=== PATIENT | female | born 1960 | race Caucasian/White ===

== ENCOUNTER 2017-01-18 09:34 | Day surgery (SDC) ==
[2014-03-20 11:36] VITALS: BMI 36.6
[2017-01-18] MEDS ORDERED: LIDOCAINE 1% 20 ML MDV ONE (10:17)
[2017-01-18] MEDS ORDERED: LIDOCAINE 1% 20 ML MDV ID ONE (10:17)
[2017-01-18] MEDS ORDERED: VERSED ONE (10:53)
[2017-01-18] MEDS ORDERED: LIDOCAINE HCL 2% LUER-JET ONE (10:53)
[2017-01-18] MEDS ORDERED: DIPRIVAN 20 ML VIAL IVP ONE (10:53)
[2017-01-18 12:20] VITALS: BP 125/78; TEMP 97.4
--- NOTE | 2017-01-18 14:40 | OP ---
PROCEDURE: EGD (ESOPHAGOGASTRODUODENOSCOPY). ENDOSCOPIST: Christy NAVA M.D. INDICATION: NAUSEA AND VOMITING. INSTRUMENT: GIFH-190. MEDICATION: PER ANESTHESIA. PROCEDURE: The patient was positioned for endoscopy. The oropharynx was sprayed with Cetacaine spray and the endoscope was advanced through the bite block into the esophagus and from there advanced to the duodenum. The duodenum was normal. The pylorus was patent. The antrum was normal. Hiatus hernia was seen on retroflex exam. The patient has esophagitis noted at the GE junction, Grade B. The esophagus was otherwise normal. PLAN: 1. We are going to increase her Nexium to b.i.d. and repeat her exam in 3 months to document healing. [facility]
== END 2017-01-18 12:00 | disposition home or self-care (01) ==
LOC: SURG 09:34
PROVIDERS: ATTEND Internal Medicine Gastroenterology
DX: R11.2 Nausea with vomiting, unspecified (principal); K20.8 Other esophagitis; K44.9 Diaphragmatic hernia without obstruction or gangrene

== ENCOUNTER 2017-05-03 06:03 | Day surgery (SDC) ==
[2014-03-20 11:36] VITALS: BMI 36.6
[2017-05-03] MEDS ORDERED: LIDOCAINE 1% 20 ML MDV ID ONE (07:15)
[2017-05-03] MEDS ORDERED: DIPRIVAN 20 ML VIAL IVP ONE (08:00)
[2017-05-03] MEDS ORDERED: VERSED ONE (08:00)
[2017-05-03] MEDS ORDERED: LIDOCAINE HCL 2% LUER-JET ONE (08:00)
--- NOTE | 2017-05-03 14:38 | OP ---
PROCEDURE: EGD (ESOPHAGOGASTRODUODENOSCOPY) . ENDOSCOPIST: Christy NAVA M.D. INDICATION: FOLLOWUP ESOPHAGITIS INSTRUMENT: GIFH-190. MEDICATION: PER ANESTHESIA. PROCEDURE: The patient was positioned for endoscopy. The oropharynx was sprayed with Cetacaine spray and the endoscope was advanced through the bite block into the esophagus and from there advanced to the duodenum. The duodenum was normal. The pylorus was patent. The antrum is normal. A hiatal hernia is once again noted on retroflex exam. The esophagus has no evidence of esophagitis at this time. It should be noted that she's also had resolution of symptoms after she has increased her PPI. The remaining esophagus was normal. ASSESSMENT: 1. Resolved esophagitis PLAN: 1. Continue her PPI on a twice a day basis for now. 2. Consider dropping back to daily in a few months MTDD
[2017-05-04 12:06] VITALS: BP 117/65; TEMP 97.8
== END 2017-05-03 09:16 | disposition home or self-care (01) ==
LOC: SURG 06:03
PROVIDERS: ATTEND Internal Medicine Gastroenterology
DX: Z09 Encounter for follow-up examination after completed treatment for conditions other than malignant neoplasm (principal); Z87.19 Personal history of other diseases of the digestive system; K44.9 Diaphragmatic hernia without obstruction or gangrene

== ENCOUNTER 2017-09-21 14:04 | Outpatient (CLI) ==
[2014-03-20 11:36] VITALS: BMI 36.6
== END 2017-09-21 14:05 | disposition home or self-care (01) ==
LOC: CAR 14:04
PROVIDERS: ATTEND Physician Assistant
DX: G47.10 Hypersomnia, unspecified (principal); R53.83 Other fatigue
CPT/HCPCS: 95810

== ENCOUNTER 2017-10-27 08:06 | Outpatient (CLI) ==
[2014-03-20 11:36] VITALS: BMI 36.6
== END 2017-10-27 08:07 | disposition home or self-care (01) ==
LOC: CAR 08:06
PROVIDERS: ATTEND Physician Assistant
DX: Z79.899 Other long term (current) drug therapy (principal)
CPT/HCPCS: 93005; 93010

== ENCOUNTER 2017-11-04 13:06 | Emergency (ER) ==
[2017-11-04 13:13] VITALS: BP 130/85; TEMP 96.8; BMI 31.2
[2017-11-04] MEDS ORDERED: ANTIVERT PO STA (14:05)
--- NOTE | 2017-11-04 14:06 | ED.PDOC ---
General ED Provider: Dr. RAMIN AU Chief Complaint: Dizziness Stated Complaint: State experienced sudden onset of dizziness/vertigo this morning. Experienced nausea without emesis. Notes experiencing sensation of numbness and tingling of the his hands. Denies headache, blurring of vision or extremity weakness. Time Seen by Physician: 15:00 Mode of Arrival: Walk-In Information Source: Patient, Family Exam Limitations: No limitations Primary Care Provider: DB AVILES Nursing and Triage Documentation Reviewed and Agree: Yes Reviewed sepsis parameters & appropriate labs ordered?: Yes System Inflammatory Response Syndrome: Not Applicable Sepsis Protocol: For patient's 13 years and over: Temp is 96.8 and below OR 101 and greater Pulse >90 BPM Resp >20/minute Acutely Altered Mental Status Are patient's symptoms suggestive of a new infection, such as: -Pneumonia -Skin, Soft Tissue -Endocarditis -UTI -Bone, Joint Infection -Implantable Device -Acute Abdominal Infection -Wound Infection -Meningitis -Blood Stream Catheter Infection -Unknown System Inflammatory Response Syndrome: Not Applicable Neurological Complaint Exam - Dizziness Complaint/Exam Onset: Sudden Symptoms Are: Still present Timing: Constant Episodes Lasting: Minutes Initial Severity: Moderate Current Severity: Mild Character: Reports: Head spinning, Room spinning, Lightheaded Aggravating: Reports: None, Exertion, Headache, Position change Alleviating: Reports: Rest, Lying down Associated Signs and Symptoms: Reports: Nausea. Denies: Diaphoresis, Tinnitus, Chest pain, Short of air, Unsteady gait, GI blood loss, Visual changes, Decreased oral intake, Change in medication, Change in diet, OTC meds, Loss of balance Cardiac Risk Factors: Reports: None Related Surgical History: Reports: None JVD Present: No Carotid Bruit Present: No Rectal Heme Positive: No Nystagmus Present: Yes (2 beat left) Gag Reflex Present: Yes Meningeal Signs Positive: No Focal Weakness: Present: None Focal Sensory Loss: Present: None Gait: Unable [id number]: Normal Findings Romberg Test Positive: No Heel to Toe Normal: Yes Nat-Hallpike Test Positive: No Differential Diagnoses: Anxiety, Labyrinthitis Review of Systems - Review Of Systems Constitutional: Reports: No symptoms Eyes: Reports: No symptoms Ears, Nose, Mouth, Throat: Reports: No symptoms Respiratory: Reports: No symptoms Cardiac: Reports: No symptoms GI: Reports: No symptoms : Reports: No symptoms Musculoskeletal: Reports: No symptoms Skin: Reports: No symptoms Neurological: Reports: Anxiety, Depressed, Emotional problems Endocrine: Denies: Excessive sweating Hematologic/Lymphatic: Reports: No symptoms All Other Systems: Reviewed and Negative Past Medical History - Past Medical History Endocrine: Reports: None Cardiovascular: Reports: None Respiratory: Reports: None Hematological: Reports: None Gastrointestinal: Reports: None Genitourinary: Reports: None Neuro/Psych: Reports: Anxiety, Depression Musculoskeletal: Reports: None Cancer: Reports: None Last Menstrual Period: NA - Surgical History General Surgical History: Reports: None - Family History Family History: Reports: None - Social History Smoking Status: Former smoker Hx Substance Use: No Alcohol Screening: Occasionally Physical Exam - Physical Exam Appearance: Well-appearing, Obese Ill-appearing: Mild Pain Distress: None Eyes: JEANNETTE, EOMI, Conjunctiva clear ENT: Ears normal, Nose normal, Oropharynx normal Neck: Supple Respiratory: Airway patent, Breath sounds clear, Breath sounds equal Cardiovascular: RRR, Pulses normal, No rub, No murmur GI/: Soft, Nontender, No masses, Bowel sounds normal Musculoskeletal: Normal strength, ROM intact, No edema, No calf tenderness Skin: Warm, Dry, Normal color Neurological: Sensation intact, Motor intact, Reflexes intact (Tenderness over bilat ulnar groove at elbow with positive reproduction of numbness with light tapping for reflex/neg phalens or tinnels), Cranial nerves intact, Alert, Oriented Psychiatric: Affect appropriate, Mood appropriate Critical Care Note - Critical Care Note Total Time (mins): 0 Course - Course Hematology/Chemistry: 11/04/17 14:25 11/04/17 14:25 Orders, Labs, Meds: Lab Review 11/04/17 11/04/17 11/04/17 13:32 14:25 14:25 WBC 12.00 H RBC 4.73 Hgb 14.6 Hct 42.1 MCV 89.0 MCH 30.9 MCHC 34.7 RDW Coeff of Antonella 12.7 Plt Count 236 Immature Gran % (Auto) 0.5 Neut % (Auto) 69.0 Lymph % (Auto) 22.4 [place] % (Auto) 7.1 Eos % (Auto) 0.6 Baso % (Auto) 0.4 Immature Gran # (Auto) 0.1 Neut # (Auto) 8.3 H Lymph # (Auto) 2.7 [place] # (Auto) 0.9 Eos # (Auto) 0.1 Baso # (Auto) 0.1 Sodium 142 Potassium 3.6 Chloride 100 Carbon Dioxide 31 Anion Gap 14.6 BUN 12 Creatinine 0.97 Estimated GFR (MDRD) 59.00 BUN/Creatinine Ratio 12.37 Glucose 91 Calcium 10.3 H Total Bilirubin 0.9 AST 17 ALT 28 Alkaline Phosphatase 102 H Total Protein 7.5 Albumin 3.9 Globulin 3.6 Albumin/Globulin Ratio 1.08 Urine Color Yellow Urine Clarity Clear Urine pH 8.5 Ur Specific [place] 1.015 Urine Protein Negative Urine Glucose (UA) Negative Urine Ketones Negative Urine Blood Negative Urine Nitrite Negative Urine Bilirubin Negative Urine Urobilinogen 0.2 Ur Leukocyte Esterase Trace Urine Microscopic WBC 0-2 Ur Squamous Epith Cells Not present Influ A Molecular Assay Influ B Molecular Assay 11/04/17 15:30 WBC RBC Hgb Hct MCV MCH MCHC RDW Coeff of Antonella Plt Count Immature Gran % (Auto) Neut % (Auto) Lymph % (Auto) [place] % (Auto) Eos % (Auto) Baso % (Auto) Immature Gran # (Auto) Neut # (Auto) Lymph # (Auto) [place] # (Auto) Eos # (Auto) Baso # (Auto) Sodium Potassium Chloride Carbon Dioxide Anion Gap BUN Creatinine Estimated GFR (MDRD) BUN/Creatinine Ratio Glucose Calcium Total Bilirubin AST ALT Alkaline Phosphatase Total Protein Albumin Globulin Albumin/Globulin Ratio Urine Color Urine Clarity Urine pH Ur Specific [place] Urine Protein Urine Glucose (UA) Urine Ketones Urine Blood Urine Nitrite Urine Bilirubin Urine Urobilinogen Ur Leukocyte Esterase Urine Microscopic WBC Ur Squamous Epith Cells Influ A Molecular Assay Negative by naat Influ B Molecular Assay Negative by naat Orders Category Date Time Status EKG-(ED ONLY) Stat CARDIO 11/04/17 14:03 Completed IV [ED IV/MEDIPORT/POWERPORT] .ONCE EMERGENCY 11/04/17 14:04 Active CBC W/ AUTO DIFF Stat LAB 11/04/17 14:25 Completed CMP [COMPREHENSIVE METABOLIC PANEL] Stat LAB 11/04/17 14:25 Completed FLU A & B MOLECULAR [FLU A/B MOLECULAR] Stat LAB 11/04/17 15:30 Completed UA [URINALYSIS C & S IF INDICATED] Stat LAB 11/04/17 13:32 Completed 0.9 % Sodium Chloride [Saline Flush] MEDS 11/04/17 14:05 Active 1 syr IVF PRN PRN Meclizine HCl [Antivert] MEDS 11/04/17 14:05 Discontinued 25 mg PO ONCE STA CT HEAD W/O CONTRAST Stat RADS 11/04/17 14:03 Completed Medications Generic Name Dose Route Start Last Admin Trade Name Freq PRN Reason Stop Dose Admin Sodium Chloride 1 syr 11/04/17 14:05 Saline Flush IVF PRN PRN To flush IV Discontinued Medications Generic Name Dose Route Start Last Admin Trade Name Freq PRN Reason Stop Dose Admin Meclizine HCl 25 mg 11/04/17 14:05 11/04/17 15:39 Antivert PO 11/04/17 14:06 25 mg ONCE STA Administration Vital Signs: Temp Pulse Resp BP Pulse Ox 11/04/17 13:09 96.8 F L 64 16 130/85 95 Departure - Departure Time of Disposition: 17:30 Disposition: HOME SELF-CARE Discharge Problem: Labyrinthitis, Upper extremity neuropathy Condition: Good Pt referred to PMD for follow-up: Yes (follow up for recheck) IPMP verified?: Yes Allergies/Adverse Reactions: Allergies duloxetine HCl [From Cymbalta] Adverse Reaction (Verified 11/04/17 13:08) ibuprofen Adverse Reaction (Verified 11/04/17 13:08) Home Medications: Ambulatory Orders Alprazolam [Xanax] 1 mg PO BID 03/20/14 Citalopram Hydrobromide [Citalopram HBr] 40 mg PO DAILY 03/20/14 Hydrochlorothiazide 25 mg PO DAILY 03/20/14 Levothyroxine Sodium [Synthroid] 100 mcg PO DAILY 03/20/14 Lurasidone HCl [Latuda] 40 mg PO DAILY 01/18/17 Esomeprazole Magnesium [Nexium] 40 mg PO DAILY 11/04/17 Meclizine HCl 25 mg PO 3-4XD PRN #20 tablet 11/04/17
--- NOTE | 2017-11-04 14:45 | CT ---
EXAM: CT of the head without contrast. HISTORY: Dizziness.. COMPARISON: 09/17/2007 TECHNIQUE: Contiguous axial images at 5 mm intervals were obtained from the base of the skull to the vertex the calvarium. No contrast was given. FINDINGS: The CSF containing spaces are diffusely enlarged consistent with atrophy. There are no ex traaxial fluid collections. There is no evidence of an acute intracranial hemorrhage. All calcified density in the left frontal lobe measuring up to 6 mm. This has appearance of a small calcified meni ngioma. No surrounding edema. Hypodensities are seen in the periventricular white matter consistent with chronic ischemic changes from small vessel disease. There are no acute vascular territory infar cts. Carotid artery and vertebral artery calcifications are seen. The osseous structures are maurice l. The extracranial soft tissues are otherwise unremarkable. IMPRESSION: 1. Chronic age-related changes. No acute intracranial abnormalities. 2. Probable small 6 mm calcified meningioma in the left frontal lobe.
== END 2017-11-04 17:45 | disposition home or self-care (01) ==
LOC: ED 13:06
DX: H83.09 Labyrinthitis, unspecified ear (principal); G56.23 Lesion of ulnar nerve, bilateral upper limbs
CPT/HCPCS: 36415; 80053; 81001; 85025; 87502; 93005; 93010; 99283

== ENCOUNTER 2018-03-14 10:23 | Day surgery (SDC) ==
[2018-03-14] MEDS ORDERED: LIDOCAINE 1% 20 ML MDV ID STA (11:20)
[2018-03-14] MEDS ORDERED: DIPRIVAN 20 ML VIAL IVP ONE (11:50)
[2018-03-14 15:26] VITALS: BP 128/67; TEMP 98.6
--- NOTE | 2018-03-15 13:55 | OP ---
PROCEDURE: COLONOSCOPY TO THE CECUM. ENDOSCOPIST: Christy NAVA M.D. INDICATION: HISTORY OF POLYPS INSTRUMENT: PCL[employer] Who Launch-190. MEDICATION: PER ANESTHESIA. PROCEDURE: The patient was positioned for colonoscopy. The digital rectal exam was negative. The colonoscope was inserted through the anus and advanced to the cecum. The cecum was identified using the ileocecal valve and the appendiceal orifice as landmarks. The scope was slowly withdrawn through an adequately prepped colon. [place] Bowel Prep score was 9. Small polyp in the transverse colon removed using cold snare polypectomy. Retroflex exam is otherwise normal. The patient tolerated the procedure without immediate complication. Withdraw time 7 minutes and 42 seconds. PLAN: 1. Suggest repeat colonoscopy in 5 years. [facility]
== END 2018-03-14 13:00 | disposition home or self-care (01) ==
LOC: SURG 10:23
PROVIDERS: ATTEND Internal Medicine Gastroenterology
DX: Z86.010 Personal history of colon polyps (principal); D12.3 Benign neoplasm of transverse colon

== ENCOUNTER 2018-10-18 09:38 | Outpatient (CLI) ==
--- NOTE | 2018-10-19 07:35 | MAMMO ---
EXAM: Digital screening mammogram with tomosynthesis and CAD HISTORY: Screening mammogram COMPARISON: Mammogram 09/05/2013 and 08/19/2014 FINDINGS: Bilateral CC and MLO views of the breasts were performed digitally and demonstrate scatter ed fibroglandular breast density. There is no abnormal nodule or calcification. Benign calcificatio ns are present and stable. There is no significant interval change. IMPRESSION: No new or suspicious abnormality RECOMMENDATION: Annual screening mammogram BIRADS category II: Benign findings
== END 2018-10-18 09:39 | disposition home or self-care (01) ==
LOC: RAD 09:38
PROVIDERS: ATTEND Nurse Practitioner Family
DX: Z12.31 Encounter for screening mammogram for malignant neoplasm of breast (principal)